=== PATIENT | female | born 1980 | race Two or more races ===

== ENCOUNTER 2024-10-27 16:48 | Emergency (ER) | payer OTHER ==
[~2024-10-27] VITALS: Ht 165.1 cm; Wt 113.4 kg
[~2024-10-27 16:48] MED LIST: AVAPRO300 MG; HUMULIN N3 ML; LASIX; SYNTROID
[2024-10-27 17:38] VITALS: BP 105/58; O2SAT 96
[2024-10-27] MEDS ORDERED: CEFTRIAXONE SODIUM 1,000 MG VIAL ONE (18:43)
[2024-10-27] MEDS ORDERED: FAMOTIDINE/PF 20 MG/2 ML VIAL ONE (18:43)
[2024-10-27] MEDS ORDERED: FAMOtidine 10 MG/ML (4ML VIAL) IV ONE (18:45)
[2024-10-27] MEDS ORDERED: CEFTRIAXONE SODIUM 1,000 MG VIAL IM ONE (18:45)
[2024-10-27] MEDS ORDERED: CEPHALEXIN750 MG PO (19:16)
[2024-10-27] MEDS ORDERED: PEPCID AC20 MG PO (19:16)
== END 2024-10-27 19:24 | disposition home or self-care (01) ==
LOC: ER 16:51
DX: L53.8 Other specified erythematous conditions (principal); E11.9 Type 2 diabetes mellitus without complications; Z79.4 Long term (current) use of insulin; Z96.41 Presence of insulin pump (external) (internal); I10 Essential (primary) hypertension; E03.9 Hypothyroidism, unspecified

== ENCOUNTER 2024-10-30 09:54 | Emergency (ER) | payer OTHER ==
[~2024-10-30] VITALS: Ht 165.1 cm; Wt 113.4 kg
[~2024-10-30 09:54] MED LIST changes: +CEPHALEXIN750 MG PO; +PEPCID AC20 MG PO
[2024-10-30] MEDS ORDERED: HUMULIN R500 UNIT/2 SQ (10:51)
[2024-10-30] MEDS ORDERED: CEFTRIAXONE SODIUM 2,000 MG VIAL IV ONE (11:15)
[2024-10-30] MEDS ORDERED: FAMOtidine 10 MG/ML (4ML VIAL) IV ONE (11:15)
[2024-10-30] MEDS ORDERED: KETOROLAC TROMETHAMINE 30 MG VIAL IU ONE (11:15)
[2024-10-30] MEDS ORDERED: KETOROLAC TROMETHAMINE 60 MG VIAL IM ONE (11:24)
[2024-10-30] MEDS ORDERED: FAMOTIDINE/PF 20 MG/2 ML VIAL ONE (11:25)
[2024-10-30] MEDS ORDERED: CEFTRIAXONE SODIUM 2,000 MG VIAL ONE (11:25)
[2024-10-30 12:17] LABS: HEMATOCRIT 35.7 % (36.0-45.00); HEMOGLOBIN 11.8 g/dL (12.0-15.00); MEAN CELL VOLUME 77.9 fL (80.00-100.00); MEAN CORPUSCULAR HEMOGLOBIN 25.7 pg (27.00-32.0); PLATELET COUNT 431 K/uL (150-450); RED BLOOD COUNT 4.58 M/uL (4.00-6.00); RED CELL DISTRIBUTION WIDTH 16.7 % (11.5-14.5)
[2024-10-30 12:25] LABS: ERYTHROCYTE SEDIMENTATION RATE 75 mm/hr
[2024-10-30 13:07] LABS: ALBUMIN 3.4 gm/dL (3.4-5.0); BILIRUBIN TOTAL 0.4 mg/dL (0.3-1.2); CALCIUM 9.2 mg/dL (8.5-10.1); CREATININE SERUM 0.54 mg/dL (0.55-1.02); GFR 123.22; GLOBULINA 4.7 G/DL (2.4-3.5); POTASSIUM 4.14 mEq/L (3.5-5.1); TOTAL PROTEIN 8.1 gm/dL (6.4-8.2)
[2024-10-30 13:17] LABS: INR 1.08; PARTIAL THROMBOPLASTIN TIME 30.3 SECONDS (22.0-34.0); PROTHROMBIN TIME 11.7 SECONDS (9.0-11.5)
[2024-10-30 13:26] LABS: C-REACTIVE PROTEIN 2.99 MG/DL (0.00-0.29)
[2024-10-30] MEDS ORDERED: LEVOFLOXACIN500 MG PO (13:34)
== END 2024-10-30 14:19 | disposition home or self-care (01) ==
LOC: ER 09:57
PROVIDERS: General Practice
DX: L08.9 Local infection of the skin and subcutaneous tissue, unspecified (principal); L53.8 Other specified erythematous conditions; E11.9 Type 2 diabetes mellitus without complications; Z79.4 Long term (current) use of insulin; Z96.41 Presence of insulin pump (external) (internal); I10 Essential (primary) hypertension; E03.9 Hypothyroidism, unspecified

== ENCOUNTER 2025-04-15 16:09 | Emergency (ER) | payer OTHER ==
[~2025-04-15] VITALS: Ht 165.1 cm; Wt 90.7 kg
[~2025-04-15 16:09] MED LIST changes: +HUMULIN R500 UNIT/2 SQ; +LEVOFLOXACIN500 MG PO
[2025-04-15] MEDS ORDERED: ZOLOFT50 MG PO (16:31)
[2025-04-15] MEDS ORDERED: RESTORIL30 M1 PO (16:31)
[2025-04-15] MEDS ORDERED: LASIX20 MG (16:31)
[2025-04-15 17:06] LABS: BASO % 0.4 % (0.1-1.2); EOS # 0.38 (0.04-0.54); EOS % 3.4 % (0.7-7.0); HEMATOCRIT 35.6 % (34.1-44.9); HEMOGLOBIN 11.3 g/dL (11.2-15.7); LYMPH # 1.71 (1.18-3.74); LYMPH % 15.5 % (19.3-53.1); MONO # 0.79 (0.24-0.82); MONO % 7.1 % (4.7-12.5); NEUT # 8.08 (1.56-6.13); NEUT % 73.1 % (34.0-71.1); PLATELET COUNT 391 K/uL (163-369); RED BLOOD COUNT 4.71 M/uL (3.93-5.22); RED CELL DISTRIBUTION WIDTH 14.6 % (11.6-14.4)
[2025-04-15 17:34] LABS: ALBUMIN 3.5 gm/dL (3.4-5.0); BILIRUBIN TOTAL 0.37 mg/dL (0.3-1.2); CALCIUM 9.1 mg/dL (8.5-10.1); CREATININE SERUM 0.75 mg/dL (0.55-1.02); GFR 83.95; POTASSIUM 3.74 mEq/L (3.5-5.1); TOTAL PROTEIN 8.5 gm/dL (6.4-8.2)
== END 2025-04-15 19:32 | disposition home or self-care (01) ==
LOC: ER 16:09
PROVIDERS: General Practice
DX: N93.9 Abnormal uterine and vaginal bleeding, unspecified (principal); E11.9 Type 2 diabetes mellitus without complications; Z79.4 Long term (current) use of insulin; I10 Essential (primary) hypertension; Z97.5 Presence of (intrauterine) contraceptive device